=== PATIENT | male | born 1945 | race Caucasian/White ===

== ENCOUNTER 2021-04-26 21:07 | Inpatient (IN) | payer MEDICARE, BC ==
[~2021-04-26] VITALS: Ht 165.1 cm; Wt 68.0 kg
[2021-04-26 21:29] LABS: BASOPHILS # (AUTO) 0.1 /CMM (0.0-0.2); BASOPHILS % (AUTO) 0.7 % (0.0-2.0); EOSINOPHILS % (AUTO) 0.5 % (0.0-6.0); HEMATOCRIT 46 % (39-51); HEMOGLOBIN 15.1 g/dL (13.5-17.5); LYMPHOCYTES # (AUTO) 2.1 /CMM (0.8-4.8); LYMPHOCYTES % (AUTO) 21.2 % (20.0-44.0); MEAN CORPUSCULAR HGB CONC 33 g/dl (31.0-36.0); MEAN CORPUSCULAR VOLUME 92 fL (80-96); MONOCYTES # (AUTO) 0.8 /CMM (0.1-1.30); MONOCYTES % (AUTO) 7.9 % (2.0-12.0); NEUTROPHILS % (AUTO) 69.7 % (43.0-81.0); PLATELET COUNT (AUTO) 200 /CMM (150-450); RED BLOOD CELL COUNT(AUTO) 4.97 MIL/uL (4.5-6.0)
--- NOTE | 2021-04-26 21:29 | NUR ---
BIBFAMILY FROM [facility] TO ER BED 5. AAOX3. NOT IN RESP DISTRESS. AMBULATORY. BROUGHT IN FOR BLURRED VISION, DISORIENTATION AND UNUSUAL BEHAVIOR NOTED AFTER PTIENT FOR A WAKE THIS MORNING. LAST KNOW WELL TIME WAS 0900 PER DAUGHTER. NO MOTOR DEFICIT NOTED. MD WAS AT THE BEDSIDE FOR EVAL. ORDERS RECEIVED, NOTED AND CARRIED OUT. IV LINE ESTABLISHED ON L AC 18G, BLOOD DRAWN AND GIVEN TO PHLEB.PT ON MONITOR.
[2021-04-26 21:54] LABS: CALCIUM, SERUM 9.3 mg/dL (8.5-10.1); CARBON DIOXIDE 28 mmol/L (21-32); CHLORIDE 103 mmol/L (98-107); GLUCOSE 152 mg/dL (74-106); POTASSIUM 4.1 mmol/L (3.5-5.1); SODIUM SERUM 140 mmol/L (136-145); UREA NITROGEN, BLOOD 12 mg/dL (7-18)
[2021-04-26 21:57] LABS: ALANINE AMINOTRANSFERASE 26 U/L (12-78); ALKALINE PHOSPHATASE 88 U/L (46-116); ASPARTATE AMINOTRANSFERASE 24 U/L (15-37); BILIRUBIN,DIRECT 0.2 mg/dL (0.0-0.2); BILIRUBIN,TOTAL 0.8 mg/dL (0.2-1.0); TOTAL PROTEIN, SERUM 7.6 g/dL (6.4-8.2)
[2021-04-26 22:34] LABS: BILIRUBIN,URINE SMALL (NEGATIVE); COLOR,URINE YELLOW (YELLOW); LEUKOCYTE ESTERASE ,URINE Negative (NEGATIVE); NITRITE, URINE Negative (NEGATIVE); PH,URINE 5.5 (5.0-8.0); PROTEIN,URINE 100 mg/dl (NEGATIVE); UGLUCOSE Negative (NEGATIVE)
[2021-04-26 22:46] LABS: BACTERIA,URINE Rare /HPF (None Seen); SQUAMOUS EPITHELIAL CELL,UR Few /HPF (None Seen); WBC,URINE NONE SEEN /HPF (0-3)
--- NOTE | 2021-04-26 23:23 | NUR ---
CALL FROM LAB. RAPID COVID NEGATIVE.
--- NOTE | 2021-04-27 00:06 | NUR ---
called in report to chandrakant amin
--- NOTE | 2021-04-27 01:05 | NUR ---
ADMIT NOTE RECEIVED PATIENT FROM ER, TRANSFERRED TO ROOM 115-1. PATIENT ABLE TO AMBULATE TO BED SAFELY. ALERT AND ORIENTED X2, TELUGU SPEAKING AND KNOWS MINIMAL MOZAMBICAN. ON O2 2L VIA NASAL CANNULA, O2 SAT 98%. NO SHORTNESS OF BREATH. RESPIRATIONS EVEN AND UNLABORED. DENIES ANY PAIN OR DISCOMFORT AT THIS TIME. IV ACCESS ON LEFT AC #18, PATENT AND INTACT. SKIN IS DRY AND INTACT. ORIENTED PATIENT TO ROOM AND CALL LIGHT. BED LOCKED AND IN LOWEST POSITION. CALL LIGHT WITHIN REACH. ALL NEEDS ANTICIPATED.
[2021-04-27 01:10] VITALS: BP 119/85
[2021-04-27] MEDS: ENOXAPARIN SODIUM 40 MG/0.4 ML DISP.SYRIN SQ SCH ×2 (01:27→01:30)
[2021-04-27] MEDS ORDERED: IV D5/0.45 NACL 1,000 ML IV PRN (01:30)
[2021-04-27] MEDS ORDERED: ACETAMINOPHEN 325 MG TABLET PO PRN (01:30)
[2021-04-27] MEDS ORDERED: MORPHINE SULFATE INJ 2 MG/ML DISP.SYRIN IV PRN (01:30)
[2021-04-27] MEDS ORDERED: MAGNESIUM HYDROXIDE 30 ML UDC PO PRN (01:30)
[2021-04-27] MEDS ORDERED: Z GUARD REMEDY 2 OZ OINT TP PRN (01:30)
[2021-04-27] MEDS ORDERED: HYDROCODONE/APAP 5/325MG TABLET PO PRN (01:30)
[2021-04-27] MEDS ORDERED: ONDANSETRON HCL/PF 4 MG/2 ML VIAL IVP PRN (01:30)
[2021-04-27] MEDS ORDERED: ZOLPIDEM TARTRATE 5 MG TABLET PO PRN (01:30)
[2021-04-27] MEDS ORDERED: MAG HYDROX/AL HYDROX/SIMETH 30 ML UDC PO PRN (01:30)
--- NOTE | 2021-04-27 01:35 | NUR ---
OFFERED LOVENOX X3. PATIENT REFUSED. RISKS AND BENEFITS EXPLAINED. STILL STRONGLY REFUSED.
--- NOTE | 2021-04-27 02:55 | NUR ---
PATIENT ON TELE MONITOR, NOTED AFIB/AFLUTTER. AND HEART RATE NOTED 38, PATIENT REMAINS ASYMPTOMATIC. NOTIFIED EULA BOWEN WITH ORDERS TO MONITOR. ALSO NOTIFIED EULA REGARDING PATIENT REFUSING LOVENOX WITH ORDERS FOR SCD. ALL NEEDS ANTICIPATED.
--- NOTE | 2021-04-27 03:10 | NUR ---
PATIENT REMOVING AND REFUSING TELE BOX, SCD, IV FLUIDS, AND ID BAND. PAGED MD, WAITING FOR REPLY BACK.
[2021-04-27 04:00] VITALS: BP 117/68
--- NOTE | 2021-04-27 06:49 | NUR ---
[facility] AWARE OF PATIENT REFUSING TELE BOX WITH ORDERS TO D/C TELE. CHARGE NURSE MARY GUTIERREZ. PATIENT ALSO REFUSED BLOOD DRAW THIS MORNING. PATIENT IN BED RESTING, A/O X2 WITH PERIODS OF CONFUSION. NO SIGNS OF PAIN. BED LOCKED AND IN LOWEST POSITION. CALL LIGHT WITHIN REACH. ENDORSED TO AM SHIFT.
--- NOTE | 2021-04-27 07:35 | NUR ---
RN NOTE PATIENT IS IN BED WITH HOB AT SEMI FOWLERS POSITION. PATIENT IS AOX2. PATIENT IS ON ROOM AIR WITH NO SIGNS OF LABORED BREATHING. LAC #18 IS PATENT AND INTACT. BED IS LOCKED IN THE LOWEST POSITION, 3 GUARD RAILS RAISED, CALL HUSTON WITHIN REACH, AND ALL HOSPITAL SAFETY PRECAUTIONS ARE BEING FOLLOWED. WILL CONTINUE TO MONITOR THROUGHOUT SHIFT.
[2021-04-27] MEDS ORDERED: SIMV-49 PO (07:48)
[2021-04-27] MEDS ORDERED: APIX5TAB PO (07:48)
[2021-04-27] MEDS ORDERED: DILT60TA3 PO (07:48)
[2021-04-27] MEDS ORDERED: LEVE250T4 PO (07:48)
[2021-04-27] MEDS ORDERED: OMEP20CA15 PO (07:48)
[2021-04-27] MEDS ORDERED: METO50TA16 PO (07:48)
--- NOTE | 2021-04-27 08:30 | NUR ---
RN NOTE PATIENT IS REFUSING FLUIDS. EDUCATED PATIENT ON IMPORTANCE OF IV FLUIDS. PATIENT STILL REFUSED.
[2021-04-27] MEDS ORDERED: PANTOPRAZOLE 40 MG VIAL IV SCH (09:00)
[2021-04-27] MEDS ORDERED: ASPIRIN 81 MG TAB.CHEW PO SCH (09:00)
[2021-04-27] MEDS ORDERED: IOHEXOL-350 100 ML VIAL IV ONE (09:56)
[2021-04-27] MEDS ORDERED: IV NS 0.9% 500 ML IV ONE (09:56)
--- NOTE | 2021-04-27 11:15 | NUR ---
RN NOTE PATIENT REFUSING ALL LAB WORK. EDUCATED PATIENT ON IMPORTANCE OF LAB WORK. PATIENT STILL REFUSED. DR. ANI GUTIERREZ.
--- NOTE | 2021-04-27 11:16 | NUR ---
RN NOTE PATIENT COMPLAINING ASKING FOR PHONE AND WALLET. CONTACTED AND SHE STATED SHE HAS THEM BOTH.
--- NOTE | 2021-04-27 14:18 | NUR ---
Turret Press Operator consult: Social service consult requested for stroke. Patient is a 76-year-old, male. SW met with patient at his bedside in the med-surg unit. Patient was alert and oriented x4. Patient was resting. Per chart, patient was brought in to the hospital on 04/26/21 from home by patient's family for transient ischemic attack and altered level of consciousness. SW asked patient if he has a history of stroke and patient denied history. Patient stated that he currently lives at [address] [place] [address]. [address], [facility] [place] [address]; [phone]. Patient provided SW with emergency contact information for patient's friend's spouse, Giovany Hoover, . Patient stated that he currently receives [employer] as a source of income. SW asked patient if he has a history of substance use and patient denied. Patient denied history of mental illness. Patient denied suicidal and homicidal ideation. SW offered the patient stroke resources. Patient accepted the resources and thanked SW. SW administered PHQ-9 assessment. Patient scored 0 on the PHQ-9. SW discussed discharge plans with the patient and patient stated that he will return to his prior living arrangement at home. Patient stated that his family will be providing transportation. PLAN: Patient will return to his prior living arrangement at home. No further SS intervention at this time, however, SW will remain available as needed.
[2021-04-27] MEDS ORDERED: GADOTERATE MEGLUMINE 10 MMOL/20 ML VIAL IV ONE (15:00)
[2021-04-27 16:00] VITALS: BP 129/75
--- NOTE | 2021-04-27 17:22 | NUR ---
RN NOTE PATIENT DC'D WITH COUSIN KRISTOPHER.
== END 2021-04-27 17:15 | disposition home or self-care (01) | DRG 65 ==
LOC: ER 21:09 → TELE1 23:44 → MEDSG1 04-27 07:39
PROVIDERS: ADMIT Nurse Practitioner Acute Care; ATTEND Nurse Practitioner Acute Care
DX: I61.9 Nontraumatic intracerebral hemorrhage, unspecified (principal); D68.59 Other primary thrombophilia; I10 Essential (primary) hypertension; Z20.822 Contact with and (suspected) exposure to COVID-19; Z86.73 Personal history of transient ischemic attack (TIA), and cerebral infarction without residual deficits; I25.10 Atherosclerotic heart disease of native coronary artery without angina pectoris; F17.200 Nicotine dependence, unspecified, uncomplicated; Z79.01 Long term (current) use of anticoagulants; R40.2242 Coma scale, best verbal response, confused conversation, at arrival to emergency department; I48.0 Paroxysmal atrial fibrillation
CPT/HCPCS: 36415; 70450-TC; 70496-TC; 70498-TC; 70553-TC; 71045-TC; 80048-TC; 80076-TC; 81001; 83605-TC; 84484-TC; 85025-TC; 85730-TC; 87040-TC; 87081-TC; 87086-TC; 92526; 92611-TC; 93307-TC; 97116-TC; 97530-TC; A9575; C9113; C9803; G0378; J1650; J3490; J7040; Q9967

== ENCOUNTER 2021-04-28 10:43 | Outpatient (CLI) | payer MEDICARE ==
[~2021-04-28 10:43] MED LIST: DILT60TA3 PO; LEVE250T4 PO; METO50TA16 PO; OMEP20CA15 PO; SIMV-49 PO
== END 2021-04-28 23:59 | disposition home or self-care (01) ==
LOC: CT 10:43
PROVIDERS: ATTEND Nurse Practitioner Acute Care
DX: Z09 Encounter for follow-up examination after completed treatment for conditions other than malignant neoplasm (principal); I63.81 Other cerebral infarction due to occlusion or stenosis of small artery; I67.82 Cerebral ischemia; I61.9 Nontraumatic intracerebral hemorrhage, unspecified
CPT/HCPCS: 70450-TC

== ENCOUNTER 2022-02-03 13:52 | Inpatient (IN) | payer MEDICARE, OTHER ==
[~2022-02-03] VITALS: Ht 162.6 cm; Wt 69.9 kg
--- NOTE | 2022-02-03 13:52 | NUR ---
PT BIB RELATIVE C/O R SIDED ABDOMINAL PAIN STARTED THIS MORNING. PT IS AAOX3 LITHUANIAN SPEAKING ONLY, NOT IN RESPIRATORY DISTRESS, HOOKED TO V/S MONITOR, KEPT RESTED AND COMFORTABLE. WILL CONTINUE TO MONITOR.
--- NOTE | 2022-02-03 14:38 | NUR ---
PHLEB AT BEDSIDE
--- NOTE | 2022-02-03 14:51 | NUR ---
PATIENT NOT ABLE TO PROVIDE URINE SAMPLE AT THIS TIME. MADE AWARE
[2022-02-03 15:00] LABS: BASOPHILS % (AUTO) 0.4 % (0.0-2.0); EOSINOPHILS % (AUTO) 1.7 % (0.0-6.0); HEMATOCRIT 46 % (39-51); HEMOGLOBIN 15.3 g/dL (13.5-17.5); LYMPHOCYTES # (AUTO) 1.6 K/uL (0.8-4.8); LYMPHOCYTES % (AUTO) 14.9 % (20.0-44.0); MEAN CORPUSCULAR HGB CONC 33 g/dl (31.0-36.0); MEAN CORPUSCULAR VOLUME 90 fL (80-96); MONOCYTES # (AUTO) 0.9 K/uL (0.1-1.30); MONOCYTES % (AUTO) 8.4 % (2.0-12.0); NEUTROPHILS # (AUTO) 7.8 K/uL (1.8-8.9); NEUTROPHILS % (AUTO) 74.6 % (43.0-81.0); PLATELET COUNT (AUTO) 305 K/uL (150-450); RED BLOOD CELL COUNT(AUTO) 5.14 MIL/uL (4.5-6.0); WHITE BLOOD COUNT (AUTO) 10.5 K/uL (4.3-11.0)
[2022-02-03 15:37] LABS: CALCIUM, SERUM 9.5 mg/dL (8.5-10.1); CREATININE 0.9 mg/dL (0.6-1.3); POTASSIUM 4.1 mmol/L (3.5-5.1)
[2022-02-03] MEDS ORDERED: APIX5TAB PO (15:38)
--- NOTE | 2022-02-03 15:39 | NUR ---
CALLED SURGERY DR. LOWRY LEFT VM
[2022-02-03 15:43] LABS: ALBUMIN 2.9 g/dL (3.4-5.0); BILIRUBIN,DIRECT 0.1 mg/dL (0.0-0.2); BILIRUBIN,TOTAL 0.5 mg/dL (0.2-1.0); TOTAL PROTEIN, SERUM 7.6 g/dL (6.4-8.2)
--- NOTE | 2022-02-03 15:46 | NUR ---
MOVE SHEET SUBMITTED AND CALLED FOR BED.
--- NOTE | 2022-02-03 15:48 | NUR ---
COVID SWAB DONE AND SENT TO LAB
[2022-02-03] MEDS ORDERED: IV NS 0.9% 1,000 ML BAG IV ONE (16:00)
[2022-02-03] MEDS ORDERED: PIPERACILLIN /TAZOBACTAM 3.375 G in IV D5W 50 ML IV ONE (16:00)
--- NOTE | 2022-02-03 16:28 | NUR ---
patient not able to provide urine sample. mad [facility] aware
[2022-02-03] MEDS ORDERED: HYDROCODONE/APAP 5/325MG TABLET PO PRN (16:30)
[2022-02-03] MEDS ORDERED: Z GUARD REMEDY 4 OZ OINT TP PRN (16:30)
[2022-02-03] MEDS ORDERED: MAGNESIUM HYDROXIDE 30 ML UDC PO PRN (16:30)
[2022-02-03] MEDS ORDERED: ZOLPIDEM TARTRATE 5 MG TABLET PO PRN (16:30)
[2022-02-03] MEDS ORDERED: MAG HYDROX/AL HYDROX/SIMETH 30 ML UDC PO PRN (16:30)
[2022-02-03] MEDS ORDERED: ONDANSETRON HCL/PF 4 MG/2 ML VIAL IVP PRN (16:30)
--- NOTE | 2022-02-03 17:04 | NUR ---
URINE SAMPLE COLLECTED AND SENT TO LAB
[2022-02-03 17:20] LABS: BILIRUBIN,URINE NEGATIVE (NEGATIVE); COLOR,URINE YELLOW (YELLOW); LEUKOCYTE ESTERASE ,URINE NEGATIVE (NEGATIVE); NITRITE, URINE NEGATIVE (NEGATIVE); PH,URINE 7.5 (5.0-8.0); PROTEIN,URINE NEGATIVE (NEGATIVE); UGLUCOSE NEGATIVE (NEGATIVE); UROBILINOGEN,URINE 0.2 EU/dL (0.2)
--- NOTE | 2022-02-03 17:48 | NUR ---
BED 327-2
--- NOTE | 2022-02-03 17:54 | NUR ---
REPORT GIVEN TO BETTIE LEES OF [place] UNIT
--- NOTE | 2022-02-03 18:20 | NUR ---
TRANSFERRED TO BED 327 IN STABLE CONDITION
--- NOTE | 2022-02-03 18:35 | NUR ---
ms rn received a new admission from er,77 year old male, awake,alert,oriented x3,not in any form of distress, came in w/ cc of abdominal pain/ perforated gallbladder, denies pain at this time, all needs attended.
[2022-02-03] MEDS: IV D5/0.45 NACL 1,000 ML IV PRN (18:54)
--- NOTE | 2022-02-03 18:59 | NUR ---
ms rn patient on bed, at bedside, waiting for dr. west for surgical consult,patient put on npo for now.all needs attended.
--- NOTE | 2022-02-03 18:59 | NUR ---
ms rn started on iv of d5 1/2 ns at 100ml /hr infusing well. will monitor patient.
[2022-02-03 19:00] VITALS: BP 122/60
--- NOTE | 2022-02-03 19:45 | NUR ---
MS RN OPENING NOTE PATIENT AWAKE IN BED WITH AT BEDSIDE, PATIENT PRIMARILY FAROESE SPEAKING, UNDERSTANDS A LITTLE BIT OF SALVADOREAN PER . PER PT ALERT/ORIENTED X 3 BUT FORGETFUL/CONFUSED AT TIMES. PATIENT IS NOT VACCINATED FOR COVID OR PNEUMONIA, PATIENT GOT FLU SHOT IN NOVEMBER 2021. PER PATIENT IS AMBULATORY AND DOESN'T USE A WALKER OR WHEELCHAIR AT HOME. PATIENT HAS TOP AND BOTTOM DENTURES. LEFT AC # 20G IV ACCESS INTACT AND RUNNING D5 1/2 NS @ 100 ML/HR. PER , PATIENT IS C/O 8/10 ABDOMINAL PAIN, WILL GIVE PRN MORPHINE IV ORDERED. SAFETY MEASURES IN PLACE: CALL LIGHT WITHIN REACH, SIDE RAILS UP X 2, BED LOCKED IN LOWEST POSITION, BED ALARM ON. WILL CONTINUE TO MONITOR PATIENT
[2022-02-03 20:00] VITALS: BP 112/59
[2022-02-03] MEDS: MORPHINE SULFATE INJ 2 MG/ML DISP.SYRIN IV PRN (20:23)
[2022-02-04 06:45] LABS: BASOPHILS % (AUTO) 0.5 % (0.0-2.0); EOSINOPHILS % (AUTO) 2.6 % (0.0-6.0); HEMATOCRIT 41 % (39-51); HEMOGLOBIN 13.8 g/dL (13.5-17.5); LYMPHOCYTES # (AUTO) 1.7 K/uL (0.8-4.8); LYMPHOCYTES % (AUTO) 20.2 % (20.0-44.0); MEAN CORPUSCULAR HGB CONC 34 g/dl (31.0-36.0); MEAN CORPUSCULAR VOLUME 89 fL (80-96); MONOCYTES # (AUTO) 0.7 K/uL (0.1-1.30); MONOCYTES % (AUTO) 8.3 % (2.0-12.0); NEUTROPHILS # (AUTO) 5.7 K/uL (1.8-8.9); NEUTROPHILS % (AUTO) 68.4 % (43.0-81.0); PLATELET COUNT (AUTO) 289 K/uL (150-450); RED BLOOD CELL COUNT(AUTO) 4.58 MIL/uL (4.5-6.0); WHITE BLOOD COUNT (AUTO) 8.4 K/uL (4.3-11.0)
--- NOTE | 2022-02-04 07:00 | NUR ---
MS RN CLOSING NOTE PATIENT AWAKE IN BED, PATIENT PRIMARILY VENEZUELAN SPEAKING, ABLE TO UNDERSTAND/SPEAK SOME SRI LANKAN. PT ALERT/ORIENTED X 2-3 BUT FORGETFUL/CONFUSED AT TIMES. PT DENIES PAIN AT THIS TIME. PATIENT DOES NOT USE CALL LIGHT DESPITE DEMONSTRATION OF HOW TO USE, BED ALARM KEPT ON THROUGHOUT SHIFT. PATIENT AMBULATORY TO BATHROOM WITH SBA, UNSTEADY GAIT AT TIMES. RIGHT AC # 20G IV ACCESS INTACT AND INFUSING D5 1/2 NS @ 100 ML/HR. MEDICATIONS GIVEN ORDERED, PT NEEDS MET THROUGHOUT SHIFT, PT KEPT NPO THROUGHOUT SHIFT. SAFETY MEASURES IN PLACE: CALL LIGHT WITHIN REACH, SIDE RAILS UP X 2, BED LOCKED IN LOWEST POSITION, BED ALARM ON. WILL ENDORSE TO DAY SHIFT NURSE FOR CONTINUITY OF CARE
[2022-02-04] MEDS: IV D5/0.45 NACL 1,000 ML IV PRN (07:05)
[2022-02-04 07:27] LABS: CALCIUM, SERUM 8.5 mg/dL (8.5-10.1); CREATININE 0.9 mg/dL (0.6-1.3); POTASSIUM 3.7 mmol/L (3.5-5.1)
[2022-02-04 07:28] LABS: ALBUMIN 2.5 g/dL (3.4-5.0); BILIRUBIN,DIRECT 0.1 mg/dL (0.0-0.2); BILIRUBIN,TOTAL 0.7 mg/dL (0.2-1.0); MAGNESIUM 1.8 mg/dL (1.8-2.4); PHOSPHORUS 2.8 mg/dL (2.5-4.9); TOTAL PROTEIN, SERUM 6.6 g/dL (6.4-8.2)
--- NOTE | 2022-02-04 07:28 | NUR ---
RN OPENING NOTES RECEIVED PATIENT IN BED, AWAKE, NO SIGNS OF ACUTE DISTRESS NOTED. STABLE ON ROOM AIR, NO SOB NOTED, BREATHING EVEN AND UNLABORED. DENIES ANY PAIN AT THIS TIME. NOTED WITH IV ACCESS O N RIGHT ANTECUBITAL #20G, INTACT, WITH IVF OF D5 1/2 NS @100ML/HR INFUSING WELL. REMAINS ON NPO. SAFETY MEASURES IN PLACE, BED IN LOWEST AND LOCKED POSITION, BED ALARM ON. SR UP X2, CALL LIGHT PLACED WITHIN EASY REACH. WITH EPISODES OF GETTING OOB UNASSISTED, REMINDED PATIENT TO USE CALL LIGHT NEEDED WHEN HE WANTS TO GO TO THE BATHROOM. WILL CONTINUE TO MONITOR PATIENT.
[2022-02-04 08:00] VITALS: BP 124/80
[2022-02-04] MEDS: PANTOPRAZOLE 40 MG VIAL IV SCH (08:17)
[2022-02-04] MEDS: MORPHINE SULFATE INJ 2 MG/ML DISP.SYRIN IV PRN (12:25)
[2022-02-04] MEDS: PIPERACILLIN /TAZOBACTAM 3.375 G in IV D5W 100 ML IV SCH ×2 (13:32→21:03)
[2022-02-04 16:00] VITALS: BP 139/71
[2022-02-04] MEDS: LEVETIRACETAM (250 MG) 250 MG TABLET PO SCH (16:32)
[2022-02-04] MEDS: METOPROLOL TARTRATE 50 MG TABLET PO SCH (16:32)
[2022-02-04] MEDS: ACETAMINOPHEN 325 MG TABLET PO PRN (16:32)
[2022-02-04] MEDS: DILTIAZEM HCL 30 MG TABLET PO SCH (16:33)
--- NOTE | 2022-02-04 18:54 | NUR ---
RN CLOSING NOTES PATIENT SITTING IN CHAIR. AWAKE, NO SIGNS OF ACUTE DISTRESS NOTED. STABLE ON ROOM AIR, NO SOB NOTED, BREATHING EVEN AND UNLABORED. FAMILY AT BEDSIDE. NO C/O PAIN AT THIS TIME. WITH IV ACCESS ON LEFT FOREARM #20G, INTACT, WITH IVF OF D5 1/2 NS @100ML/HR INFUSING WELL. REMAINS ON NPO. SAFETY MEASURES MAINTAINED. STILL WITH EPISODES OF GETTING OOB UNASSISTED, REMINDED PATIENT TO USE CALL LIGHT NEEDED WHEN HE WANTS TO GO TO THE BATHROOM. WILL ENDORSE TO NEXT SHIFT FOR YENNIFER.
--- NOTE | 2022-02-04 19:30 | NUR ---
MS RN OPENING NOTES: RECEIVED PATIENT AWAKE SITTING ON CHAIR WITH FAMILY AT ROOM, A/O X2-3 AMBULATORY WITH ASSISTANCE, PATIENT ON NPO, WITH LFA#20 WITH ONGOING D5 1/2 NSS@100ML PER HOUR INFUSING WELL, PATIENT ON ROOM AIR NO SOB, SATURATING WELL, PATIENT KEPT CLEAN AND DRY ALL NEEDS MET WILL CONTINUE TO MONITOR.
[2022-02-04 20:00] VITALS: BP 112/69
[2022-02-05] MEDS: PIPERACILLIN /TAZOBACTAM 3.375 G in IV D5W 100 ML IV SCH ×3 (04:20→20:17)
--- NOTE | 2022-02-05 06:26 | NUR ---
MS RN CLOSING NOTES: PATIENT SLEEP IN BED COMFORTABLY, BED IN LOW POSITION, CALL LIGHTS WITHIN REACH, NO COMPLAIN OF PAIN AND DISCOMFORT AT THIS TIME, PATIENT IS A/OX2-3 WITH EPISODE OF CONFUSION, ON ROOM AIR SATURATING WELL, NPO FOR POSSIBLE LAPAROSCOPIC CHOLECYSTECTOMY WITH POSSIBLE OPEN, TOMM IN AM, WITH IV LINE AT [id number] WITH D5 1/2 NSS @100ML PER HOUR INFUSING WELL, PATIENT IS AMBULATORY WITH STAND BY ASSIST, REMIND PATIENT TO USE CALL LIGHT WHEN NEEDED ASSITANCE, PATIENT KEPT CLEAN AND DRY ALL NEEDS MET NEDORSE TO INCOMING SHIFT.
[2022-02-05] MEDS ORDERED: ANESTHESIA TRAY IN PYXIS 1 EA TRAY MC ONE (07:02)
[2022-02-05] MEDS ORDERED: BUPIVACAINE 0.5 % PF 150 MG/30 ML VIAL ONE (07:02)
[2022-02-05 07:17] LABS: BASOPHILS # (AUTO) 0.1 K/uL (0.0-0.2); BASOPHILS % (AUTO) 0.9 % (0.0-2.0); EOSINOPHILS % (AUTO) 2.4 % (0.0-6.0); HEMATOCRIT 45 % (39-51); HEMOGLOBIN 15.3 g/dL (13.5-17.5); LYMPHOCYTES # (AUTO) 2.1 K/uL (0.8-4.8); LYMPHOCYTES % (AUTO) 23.5 % (20.0-44.0); MEAN CORPUSCULAR HGB CONC 34 g/dl (31.0-36.0); MEAN CORPUSCULAR VOLUME 89 fL (80-96); MONOCYTES # (AUTO) 0.7 K/uL (0.1-1.30); MONOCYTES % (AUTO) 7.8 % (2.0-12.0); NEUTROPHILS # (AUTO) 5.9 K/uL (1.8-8.9); NEUTROPHILS % (AUTO) 65.4 % (43.0-81.0); PLATELET COUNT (AUTO) 311 K/uL (150-450); RED BLOOD CELL COUNT(AUTO) 5.11 MIL/uL (4.5-6.0)
[2022-02-05] MEDS ORDERED: HYDROMORPHONE INJ 2 MG/ML DISP.SYRIN ONE (07:17)
[2022-02-05] MEDS ORDERED: FENTANYL PF 250MCG/5ML AMPUL ONE (07:17)
[2022-02-05] MEDS ORDERED: MIDAZOLAM HCL 2 MG/2ML VIAL ONE (07:17)
[2022-02-05] MEDS ORDERED: ROCURONIUM BROMIDE 50 MG/5 ML ONE (07:18)
[2022-02-05] MEDS ORDERED: FAMOTIDINE/PF INJ 20 MG/2 ML VIAL IV ONE (07:18)
--- NOTE | 2022-02-05 07:30 | NUR ---
MS RN OPENING NOTES: RECEIVED PATIENT AWAKE ON BED, A/O X2-3, SPEAKS ICELANDIC. AMBULATORY WITH ASSISTANCE, PATIENT ON NPO, WITH LFA#20 WITH ONGOING D5 1/2 NSS@100ML PER HOUR INFUSING WELL, PATIENT ON ROOM AIR NO SOB, SATURATING WELL. PATIENT PICKED OP BY OR PERSONNEL AT 0715 FOR SURGERY. ABLE TO MAKE NEEDS KNOWN. ALL NEEDS ATTENDED. LEFT THE UNIT FOR SURGERY.
[2022-02-05 07:31] LABS: ALANINE AMINOTRANSFERASE 89 U/L (12-78); ALBUMIN 2.7 g/dL (3.4-5.0); ALKALINE PHOSPHATASE 101 U/L (46-116); ASPARTATE AMINOTRANSFERASE 48 U/L (15-37); BILIRUBIN,DIRECT 0.2 mg/dL (0.0-0.2); BILIRUBIN,TOTAL 1.1 mg/dL (0.2-1.0); CALCIUM, SERUM 9.2 mg/dL (8.5-10.1); CARBON DIOXIDE 26 mmol/L (21-32); CHLORIDE 102 mmol/L (98-107); CREATININE 0.9 mg/dL (0.6-1.3); GLUCOSE 105 mg/dL (74-106); MAGNESIUM 2.5 mg/dL (1.8-2.4); PHOSPHORUS 3.5 mg/dL (2.5-4.9); POTASSIUM 3.7 mmol/L (3.5-5.1); SODIUM SERUM 138 mmol/L (136-145); TOTAL PROTEIN, SERUM 7.4 g/dL (6.4-8.2); UREA NITROGEN, BLOOD 8 mg/dL (7-18)
[2022-02-05] MEDS: DILTIAZEM HCL 30 MG TABLET PO SCH ×2 (09:00→16:45)
[2022-02-05] MEDS: LEVETIRACETAM (250 MG) 250 MG TABLET PO SCH ×2 (09:00→16:45)
[2022-02-05] MEDS: METOPROLOL TARTRATE 50 MG TABLET PO SCH ×2 (09:00→16:46)
--- NOTE | 2022-02-05 10:30 | NUR ---
RN NOTES PATIENT BACK FROM SURGERY. FAMILY AT HIS SIDE. NO PAIN NOTED. NO RESPIRATORY DISTRESS NOTED. VITAL SIGNS IN NORMAL RANGES. ABLE TO MAKE NEEDS KNOWN. GP DRAIN TUBE INTACT. NO BLEEDING ON THE SURGERY SITES NOTED. ALL NEEDS ATTENDED. ABLE TO SWALLOW LIQUIDS. WILL CONTINUE TO MONITOR.
[2022-02-05] MEDS: PANTOPRAZOLE 40 MG VIAL IV SCH (13:24)
--- NOTE | 2022-02-05 18:46 | NUR ---
MS RN CLOSING NOTES: PATIENT AWAKE ON BED, A/O X2-3, SPEAKS BENGALI. AMBULATORY WITH ASSISTANCE, PATIENT S/P OF THE LAPAROSCOPY OF THE CHOLECYSTOSTOMY. NO BLEEDING ON THE SURGICAL SITED. GP DRAINING WELL. NO PAIN NOTED., WITH LFA#20 WITH ONGOING D5 1/2 NSS@100ML PER HOUR INFUSING WELL, PATIENT ON ROOM AIR NO SOB, SATURATING WELL. . ABLE TO MAKE NEEDS KNOWN. ALL NEEDS ATTENDED. ALL DUE MEDS GIVEN ORDERED. BED LOCKED IN THE LOWEST POSITION. CALL LIGHT AND TABLE IN REACH. WILL ENDORSE FOR YENNIFER.
--- NOTE | 2022-02-05 19:47 | NUR ---
MS RN OPENING NOTES: PATIENT AWAKE ON BED, A/O X2-3, SPEAKS PERSIAN. AMBULATORY WITH ASSISTANCE, PATIENT S/P OF THE LAPAROSCOPY OF THE CHOLECYSTOSTOMY. NO BLEEDING ON THE SURGICAL SITED. GP DRAINING WELL. NO PAIN NOTED., WITH LFA#20 WITH ONGOING D5 1/2 NSS@100ML PER HOUR INFUSING WELL, PATIENT ON ROOM AIR NO SOB, SATURATING WELL. . ABLE TO MAKE NEEDS KNOWN. ALL NEEDS ATTENDED. BED LOCKED IN THE LOWEST POSITION. CALL LIGHT AND TABLE IN REACH. WILL CONTINUE TO MONITOR.
[2022-02-05 20:14] VITALS: BP 113/65
[2022-02-05 20:15] VITALS: BP 111/59
[2022-02-06] MEDS: PIPERACILLIN /TAZOBACTAM 3.375 G in IV D5W 100 ML IV SCH ×3 (04:34→20:58)
--- NOTE | 2022-02-06 05:39 | NUR ---
MS RN NOTES PT ERICKaylaJESI TO ROOM 326-1 ATTEMPTED TO RECONNECT PT TO IV ATB PT AGGRESSIVE STATED " DONT TOUCH ME ! YOU YOU UNDERSTAND WHAT THAT MEANS! I DON'T NEED ANTIBIOTICS LEAVE ME ALONE " WILL TRY AGAIN LATER. Addendum: 02/06/22 at 0544 by MARIAN SALAZAR RN TRIED TO EMPTY LOU DRAIN WELL PT PUT UP HIS LEGS IF TO KICK ME. CHARGE NURSE AWARE.
--- NOTE | 2022-02-06 06:32 | NUR ---
MS RN CLOSING NOTES: PATIENT AWAKE ON BED, A/O X2-3, SPEAKS TAJIK. AMBULATORY WITH ASSISTANCE, PATIENT S/P OF THE LAPAROSCOPY OF THE CHOLECYSTOSTOMY. NO BLEEDING ON THE SURGICAL SITED. GP DRAINING WELL 30 CC OUTPUT WAS UNABLE TO DRAIN LOU DRAIN AT THIS TIME PT IS REFUSING PT STATED " DONT TOUCH I DONT WANT YOU TO TOUCH ME" PT IS ALSO REFUSING RECONNECTION TO IV ATB AT THIS TIME. NO PAIN NOTED OR REPORTED AT THIS TIME. NOTED WITH LFA#20, PATIENT ON ROOM AIR NO SOB, SATURATING WELL. ABLE TO MAKE NEEDS KNOWN. ALL NEEDS ATTENDED. BED LOCKED IN THE LOWEST POSITION. CALL LIGHT AND TABLE IN REACH. BED ALARM ON WILL ENDORSE CARE TO DAY SHIFT NURSE.
--- NOTE | 2022-02-06 07:26 | NUR ---
MS RN OPENING NOTES: PATIENT AWAKE ON BED, A/O X2-3, SPEAKS LATVIAN. AMBULATORY WITH ASSISTANCE, PATIENT S/P OF THE LAPAROSCOPY OF THE CHOLECYSTOSTOMY. NO BLEEDING ON THE SURGICAL SITED. GP DRAINING WELL. NO PAIN NOTED., WITH LFA#20 WITH ONGOING D5 1/2 NSS@100ML PER HOUR INFUSING WELL, PATIENT ON ROOM AIR NO SOB, SATURATING WELL. . ABLE TO MAKE NEEDS KNOWN. ALL NEEDS ATTENDED. BED LOCKED IN THE LOWEST POSITION AND LOCKED. CALL LIGHT AND TABLE IN REACH. WILL CONTINUE TO MONITOR.
[2022-02-06] MEDS: PANTOPRAZOLE 40 MG TABLET.DR PO SCH (08:40)
[2022-02-06] MEDS: LEVETIRACETAM (250 MG) 250 MG TABLET PO SCH ×2 (08:40→16:44)
[2022-02-06] MEDS: METOPROLOL TARTRATE 50 MG TABLET PO SCH ×2 (09:00→16:45)
[2022-02-06] MEDS: DILTIAZEM HCL 30 MG TABLET PO SCH (09:00)
--- NOTE | 2022-02-06 09:00 | NUR ---
RN NOTES HELD METOPROLOL AND DILTIAZEM FOR BP=99/55, DOCTOR OF AUDIOLOGY BEVERLY HOLLY AWARE.
--- NOTE | 2022-02-06 11:00 | NUR ---
RN NOTES PER ALEN AMAYA PATIENT IS OK TO GET ELIQUIS. PEBBLES HOLLY RESUMED THE ORDER FOR ELIQUIS 5 MG BID .
[2022-02-06 11:37] LABS: BASOPHILS # (AUTO) 0.1 K/uL (0.0-0.2); BASOPHILS % (AUTO) 0.4 % (0.0-2.0); HEMATOCRIT 38 % (39-51); HEMOGLOBIN 12.6 g/dL (13.5-17.5); LYMPHOCYTES # (AUTO) 1.1 K/uL (0.8-4.8); LYMPHOCYTES % (AUTO) 6.6 % (20.0-44.0); MEAN CORPUSCULAR HGB CONC 33 g/dl (31.0-36.0); MEAN CORPUSCULAR VOLUME 89 fL (80-96); MONOCYTES # (AUTO) 0.9 K/uL (0.1-1.30); MONOCYTES % (AUTO) 5.3 % (2.0-12.0); NEUTROPHILS # (AUTO) 15.2 K/uL (1.8-8.9); NEUTROPHILS % (AUTO) 87.7 % (43.0-81.0); PLATELET COUNT (AUTO) 327 K/uL (150-450); RED BLOOD CELL COUNT(AUTO) 4.29 MIL/uL (4.5-6.0); WHITE BLOOD COUNT (AUTO) 17.3 K/uL (4.3-11.0)
[2022-02-06 12:43] LABS: ALBUMIN 2.3 g/dL (3.4-5.0); BILIRUBIN,DIRECT 0.1 mg/dL (0.0-0.2); BILIRUBIN,TOTAL 0.5 mg/dL (0.2-1.0); CALCIUM, SERUM 8.6 mg/dL (8.5-10.1); CREATININE 0.9 mg/dL (0.6-1.3); MAGNESIUM 2.5 mg/dL (1.8-2.4); PHOSPHORUS 2.6 mg/dL (2.5-4.9); POTASSIUM 3.8 mmol/L (3.5-5.1); TOTAL PROTEIN, SERUM 6.5 g/dL (6.4-8.2)
[2022-02-06] MEDS: APIXABAN 5 MG TABLET PO SCH (16:46)
--- NOTE | 2022-02-06 18:56 | NUR ---
MS RN CLOSING NOTES: PATIENT AWAKE ON BED, A/O X2-3, SPEAKS SLOVENIAN. AMBULATORY WITH ASSISTANCE, PATIENT S/P OF THE LAPAROSCOPY OF THE CHOLECYSTOSTOMY. NO BLEEDING ON THE SURGICAL SITED. GP DRAINING WELL. NO PAIN NOTED., WITH LFA#20 WITH ONGOING D5 1/2 NSS@100ML PER HOUR INFUSING WELL, PATIENT ON ROOM AIR NO SOB, SATURATING WELL.ALL DUE MEDS GIVEN ORDERED. . ABLE TO MAKE NEEDS KNOWN. ALL NEEDS ATTENDED. BED LOCKED IN THE LOWEST POSITION AND LOCKED. CALL LIGHT AND TABLE IN REACH. WILL ENDORSE FOR YENNIFER.
[2022-02-06 20:00] VITALS: BP 132/72
--- NOTE | 2022-02-06 20:47 | NUR ---
MS RN OPENING NOTES: RECEIVED PATIENT SLEEP IN BED COMFORTABLY, BED IN LOW POSITION, CALL LIGHTS WITHIN REACH, NO COMPLAIN OF PAIN AND DISCOMFORT AT THIS TIME, PATIENT IS A/OX3 AMBULATORY WITH ASSISTANCE, FAMILY ON BEDSIDE WITH IV LINE AT LFA#20 WITH ONGOING D5 1/2 NSS@100 ML PER HOUR INFUSING WELL, PATIENT IS S/P CHOLECYSTECTOMY WITH RIGHT LOU DRAIN WITH 3 SURGICAL SITE COVER AND CLEANED, PATIENT KEPT CLEAN AND DRY ALL NEEDS MET WILL CONTINUE TO MONITOR
[2022-02-07] MEDS: PIPERACILLIN /TAZOBACTAM 3.375 G in IV D5W 100 ML IV SCH ×3 (05:15→20:20)
--- NOTE | 2022-02-07 06:29 | NUR ---
MS RN CLOSING NOTE: PATIENT SLEEP IN ED COMFORTABLY BED IN LOW POSITION, CALL LIGHTS WITHIN REACH, NO COMPLAIN OF PAIN AND DISCOMFORT AT THIS TIME, WITH ONGOING IV AT RIGHT HAND #22 WITH D5 1/2 NS@100 ML/HOUR, PATIENT ON ROOM AIR SATURATING WELL, NO SOB WAS OBSERVED, PATIENT WITH LOU DRAIN ON RIGHT LOWER ABDOMEN WITH 20CC OUTPUT, BANDAGE ON PUNCTURE SITE CLEAN AND DRY, PATIENT AMBULATE TO BATHROOM WITH SUPERVISION, KEPT CLEAN AND DRY ALL NEEDS MET ENDORSE TO INCOMING SHIFT.
[2022-02-07 06:57] LABS: ALANINE AMINOTRANSFERASE 111 U/L (12-78); ALBUMIN 2.4 g/dL (3.4-5.0); ALKALINE PHOSPHATASE 100 U/L (46-116); ASPARTATE AMINOTRANSFERASE 79 U/L (15-37); BILIRUBIN,DIRECT 0.1 mg/dL (0.0-0.2); BILIRUBIN,TOTAL 0.5 mg/dL (0.2-1.0); CALCIUM, SERUM 8.8 mg/dL (8.5-10.1); CARBON DIOXIDE 26 mmol/L (21-32); CHLORIDE 104 mmol/L (98-107); CREATININE 0.8 mg/dL (0.6-1.3); GLUCOSE 106 mg/dL (74-106); MAGNESIUM 2.1 mg/dL (1.8-2.4); PHOSPHORUS 2.9 mg/dL (2.5-4.9); POTASSIUM 3.6 mmol/L (3.5-5.1); SODIUM SERUM 139 mmol/L (136-145); TOTAL PROTEIN, SERUM 6.6 g/dL (6.4-8.2); UREA NITROGEN, BLOOD 10 mg/dL (7-18)
[2022-02-07 07:19] LABS: BASOPHILS # (AUTO) 0.1 K/uL (0.0-0.2); BASOPHILS % (AUTO) 0.4 % (0.0-2.0); EOSINOPHILS % (AUTO) 1.1 % (0.0-6.0); HEMATOCRIT 39 % (39-51); HEMOGLOBIN 12.9 g/dL (13.5-17.5); LYMPHOCYTES # (AUTO) 1.7 K/uL (0.8-4.8); LYMPHOCYTES % (AUTO) 14.7 % (20.0-44.0); MEAN CORPUSCULAR HGB CONC 33 g/dl (31.0-36.0); MEAN CORPUSCULAR VOLUME 89 fL (80-96); MONOCYTES # (AUTO) 0.8 K/uL (0.1-1.30); MONOCYTES % (AUTO) 6.6 % (2.0-12.0); NEUTROPHILS % (AUTO) 77.2 % (43.0-81.0); PLATELET COUNT (AUTO) 325 K/uL (150-450); RED BLOOD CELL COUNT(AUTO) 4.35 MIL/uL (4.5-6.0); WHITE BLOOD COUNT (AUTO) 11.7 K/uL (4.3-11.0)
--- NOTE | 2022-02-07 07:30 | NUR ---
RN MS NOTES PT IN BED, AWAKE, ALERT AND ORIENTED, DENIES PAIN, NOT IN DISTRESS, CALL LIGHT WITHIN REACH, NEEDS ATTENDED, ASSISTED TO BATHROOM NEEDED, ABLE TO WALK WITH SLOW AND STEADY GAIT WITH STANDBY ASSISTANCE, KEPT COMFORTABLE IN BED.
[2022-02-07] MEDS: PANTOPRAZOLE 40 MG TABLET.DR PO SCH (08:46)
[2022-02-07] MEDS: LEVETIRACETAM (250 MG) 250 MG TABLET PO SCH ×2 (08:46→17:03)
[2022-02-07] MEDS: APIXABAN 5 MG TABLET PO SCH ×2 (08:47→17:03)
[2022-02-07] MEDS: METOPROLOL TARTRATE 50 MG TABLET PO SCH ×2 (09:13→17:00)
--- NOTE | 2022-02-07 18:14 | NUR ---
RN MS NOTES PT IN BED, AWAKE, ALERT AND ORIENTED, NO COMPLAINT OF PAIN AT THIS TIME, RESPIRATIONS NORMAL, BEN AT BEDSIDE, ASSISTED PT TO BATHROOM NEEDED, PT SEEN AND EXAMINED BY DR. LOWRY, PLAN FOR REMOVAL OF LOU DRAIN TOMORROW, ALL NEEDS ATTENDED.
--- NOTE | 2022-02-07 18:57 | NUR ---
RN MS NOTES 10 ML OUTPUT FROM LOU DRAIN AT RIGHT SIDE OF THE ABDOMEN.
--- NOTE | 2022-02-07 19:38 | NUR ---
MS RN OPENING NOTES RECEIVED PATIENT AWAKE IN BED. A/O X3.PATIENTS AT BEDSIDE. PT STABLE ON ROOM AIR. NO SOB OR S/S OF RESPIRATORY DISTRESS NOTED. IV ACCESS LFA 20 GAUGE, INTACT AND PATENT, RUNNING D5 1/2 NS @100 ML/HR. PATIENT IS S/P CHOLECYSTECTOMY WITH RIGHT LOU DRAIN WITH 3 SURGICAL SITES COVERED AND CLEAN. SAFETY PRECAUTIONS IN PLACE. BED IN LOWEST LOCKED POSITION, HOB ELEVATED, SIDE RAILS UP X2, AND CALL LIGHT AND TABLE WITHIN REACH. ALL NEEDS MET AT THIS TIME.
[2022-02-07 20:00] VITALS: BP 133/66
[2022-02-07] MEDS: ACETAMINOPHEN 325 MG TABLET PO PRN (20:36)
--- NOTE | 2022-02-07 20:36 | NUR ---
RN NOTE PT COMPLAINED OF MILD PAIN AT SURGICAL SITE R ABDOMEN, 12/15. ADMINISTERED TYLENOL 650 MG ORDERED FOR MILD PAIN. ALL NEEDS MET AT THIS TIME.
[2022-02-08] MEDS: PIPERACILLIN /TAZOBACTAM 3.375 G in IV D5W 100 ML IV SCH ×3 (04:14→20:25)
[2022-02-08] MEDS ORDERED: IOHEXOL-350 100 ML VIAL IV ONE ×2 (06:05→14:02)
[2022-02-08] MEDS ORDERED: CT SWABBABLE VALVE TRANS SET 1 EA INFUS.SET MC ONE (06:05)
[2022-02-08] MEDS ORDERED: IV NS 0.9% 250 ML IV ONE ×2 (06:06→14:03)
[2022-02-08 06:09] LABS: BASOPHILS # (AUTO) 0.1 K/uL (0.0-0.2); BASOPHILS % (AUTO) 0.5 % (0.0-2.0); EOSINOPHILS % (AUTO) 1.8 % (0.0-6.0); HEMATOCRIT 48 % (39-51); HEMOGLOBIN 15.9 g/dL (13.5-17.5); LYMPHOCYTES # (AUTO) 2.3 K/uL (0.8-4.8); LYMPHOCYTES % (AUTO) 21.7 % (20.0-44.0); MEAN CORPUSCULAR HGB CONC 33 g/dl (31.0-36.0); MEAN CORPUSCULAR VOLUME 90 fL (80-96); MONOCYTES # (AUTO) 0.9 K/uL (0.1-1.30); MONOCYTES % (AUTO) 8.5 % (2.0-12.0); NEUTROPHILS # (AUTO) 7.3 K/uL (1.8-8.9); NEUTROPHILS % (AUTO) 67.5 % (43.0-81.0); PLATELET COUNT (AUTO) 393 K/uL (150-450); RED BLOOD CELL COUNT(AUTO) 5.32 MIL/uL (4.5-6.0); WHITE BLOOD COUNT (AUTO) 10.8 K/uL (4.3-11.0)
[2022-02-08 06:20] LABS: CALCIUM, SERUM 9.5 mg/dL (8.5-10.1); CARBON DIOXIDE 23 mmol/L (21-32); CHLORIDE 103 mmol/L (98-107); GLUCOSE 157 mg/dL (74-106); MAGNESIUM 2.3 mg/dL (1.8-2.4); PHOSPHORUS 3.7 mg/dL (2.5-4.9); POTASSIUM 4.1 mmol/L (3.5-5.1); SODIUM SERUM 139 mmol/L (136-145); UREA NITROGEN, BLOOD 10 mg/dL (7-18)
--- NOTE | 2022-02-08 06:45 | NUR ---
RN NOTE AMBULATED PT TO TOILET AT 0445. PT COMPLAINED OF CONSTIPATION BUT DID NOT WANT TO GO BACK TO BED, REFUSED MEDICATION FOR CONSTIPATION. MAINTAINED STATUS AT BEDSIDE WHILE PATIENT WAS USING RESTROOM AND ASKED IF DONE EVERY 5 MINUTES. AT 0530, PT LEANED HEAVILY ON HIS LEFT SIDE AND UNABLE TO STAND FROM TOILET. SAFETY TRANSPORTED TO BED WITH MAXIMUM ASSIST. PT NOTED TO BE DIAPHORETIC. BS 152. INITIATED RAPID RESPONSE AT 0540. ICU CHARGE CALLED CODE STROKE AT 0546. ATTEMPTED TO GET VITALS BUT PATIENT WAS TAKEN TO CT. EKG, LABS, AND CHEST X-RAY DONE AT BEDSIDE. SEEN BY TELEHEALTH NEURO MD. MD ROSE CALLED BACK AT 0640 AND INFORMED OF PATIENT STATUS. SEE NOTES FOR NIHSS SCORE. BEN NOTIFIED AND CONSENT GIVEN FOR MRI BRAIN WITHOUT CONTRAST. PT READING A FIB ON TELEMETRY. NEURO CHECKS EVERY 30 MINUTES X2 AND THEN EVERY 2 HOURS. Addendum: 02/08/22 at 0848 by MAYE CAMACHO RN PT REFUSED SWALLOW EVALUATION.
--- NOTE | 2022-02-08 07:00 | NUR ---
PERSONAL LINES INSURANCE AGENT CLOSING NOTES PATIENT AWAKE IN BED. A/O X1. PT STABLE ON ROOM AIR. NO SOB OR S/S OF RESPIRATORY DISTRESS NOTED. IV ACCESS LFA 20 GAUGE, INTACT AND PATENT, RUNNING D5 1/2 NS @100 ML/HR. PATIENT IS S/P CHOLECYSTECTOMY WITH RIGHT LOU DRAIN WITH 3 SURGICAL SITES COVERED AND CLEAN. SAFETY PRECAUTIONS IN PLACE. BED IN LOWEST LOCKED POSITION, HOB ELEVATED, SIDE RAILS UP X2, AND CALL LIGHT AND TABLE WITHIN REACH. ALL NEEDS MET AT THIS TIME. NEURO CHECKS COMPLETED. PATIENT REFUSED SWALLOW EVALUATION. WILL ENDORSE TO ONCOMING NURSE FOR YENNIFER.
--- NOTE | 2022-02-08 07:07 | NUR ---
TEXT DR. DE LA ROSA FOR MRI APPROVAL.
--- NOTE | 2022-02-08 07:30 | NUR ---
DIESEL DINKEY OPERATOR NOTES PT IN BED, AWAKE, ALERT, VERBALLY RESPONSIVE, STATES THAT HE WANTS TO GO TO THE BATHROOM, NO COMPLAINT OF PAIN OR ANY DISCOMFORT, ON O2 AT 2LPM VIA N/C, NO SOB NOTED, WILL CONTINUE TO MONITOR.
--- NOTE | 2022-02-08 07:47 | NUR ---
MRI ON HOLD PER DR. DE LA ROSA, HE WILL LET US KNOW.
[2022-02-08 08:00] VITALS: BP 126/70
[2022-02-08] MEDS: PANTOPRAZOLE 40 MG TABLET.DR PO SCH (09:07)
[2022-02-08] MEDS: LEVETIRACETAM (250 MG) 250 MG TABLET PO SCH ×2 (09:07→16:58)
[2022-02-08] MEDS: METOPROLOL TARTRATE 50 MG TABLET PO SCH ×2 (09:08→16:58)
[2022-02-08] MEDS: APIXABAN 5 MG TABLET PO SCH ×2 (09:09→16:59)
--- NOTE | 2022-02-08 09:51 | NUR ---
COATING ENGINEER NOTES PT SEEN AND EXAMINED BY DR. YAO, NEURO CHECK PERFORMED, PT WITH LEFT SIDED WEAKNESS, HR GOES UP TO 140'S-130'S AFIB WITH PVC'S, MD AWARE, WILL CONTINUE TO MONITOR, PT REMAINS AWAKE AND ALERT, ABLE TO ANSWER QUESTIONS, DENIES PAIN, DIZZINESS AND SOB.
[2022-02-08 11:32] LABS: THYROID STIMULATING HORMONE 0.593 uIU/mL (0.358-3.74)
--- NOTE | 2022-02-08 15:14 | NUR ---
RN MS NOTES PT SEEN BY DR. LOWRY, RIGHT ABDOMEN LOU DRAIN REMOVED BY DR. LOWRY, NO BLEEDING NOTED, DRY DRESSING APPLIED, PT TOLERATED PROCEDURE WELL.
[2022-02-08 16:00] VITALS: BP 112/88
--- NOTE | 2022-02-08 18:27 | NUR ---
RN MS NOTES PT IN BED, RESTING, NO COMPLAINT OF PAIN, ON ROOM AIR, NO SOB NOTED, NEUROCHECKS DONE ORDERED, PT SEEN BY DR. ALSTON, PT COMPLETED CTA BRAIN AND CAROTID, ASSISTED IN REPOSITIONING, IV FLUIDS INFUSING WELL, BED ALARM ON AT ALL TIMES, SAFETY PRECAUTIONS OBSERVED.
--- NOTE | 2022-02-08 19:30 | NUR ---
RN OPENING NOTE PATIENT IN BED AWAKE. PATIENT IS ABLE TO MAKE NEEDS KNOWN. CURRENTLY ON RA TOLERATING WELL, NOT IN ANY APPARENT DISTRESS. PATIENT IS ON TELE MONITOR FOR OBSERVATION D/T CODE STROKE THIS AM. CONTROLLED AFIB AT THIS TIME 90 BPM. PATIENT S/S REMOVAL OF LOU DRAIN ON R ABD- DRESSING C/D/I. PATIENT HAS A R AC 18 G HAS ON GOING D51/2 NS AT 100 ML/HR. PATENT AND INTACT AND R HAND 20 G SALINE LOCKED AT THIS TIME. PATIENT REPORTS PAIN ON HIS L NECK AND REQUESTING TYLENOL. WILL MANAGE PAIN APPROPRIATELY. PATIENT OBSERVED TO HAVE L SIDED WEAKNESS. SAFETY MEASURES IN PLACE: BED LOCKED AND IN LOWEST POSITION, CALL LIGHT WITHIN REACH, SIDE RAILS UP. BED ALARM ON. WILL MONITOR PATIENT CLOSELY.
[2022-02-08 20:00] VITALS: BP 141/74
[2022-02-08] MEDS: IV D5/0.45 NACL 1,000 ML IV PRN (20:25)
[2022-02-08] MEDS: ACETAMINOPHEN 325 MG TABLET PO PRN (20:26)
--- NOTE | 2022-02-08 20:30 | NUR ---
TYLENOL GIVEN FOR MILD PAIN ON THE NECK.
[2022-02-09] VITALS: BP 142/73
[2022-02-09 04:00] VITALS: BP 124/71
[2022-02-09] MEDS: PIPERACILLIN /TAZOBACTAM 3.375 G in IV D5W 100 ML IV SCH ×3 (04:18→20:36)
[2022-02-09 06:34] LABS: BASOPHILS # (AUTO) 0.1 K/uL (0.0-0.2); BASOPHILS % (AUTO) 0.7 % (0.0-2.0); HEMATOCRIT 41 % (39-51); LYMPHOCYTES # (AUTO) 1.4 K/uL (0.8-4.8); LYMPHOCYTES % (AUTO) 16.9 % (20.0-44.0); MEAN CORPUSCULAR HGB CONC 34 g/dl (31.0-36.0); MEAN CORPUSCULAR VOLUME 88 fL (80-96); MONOCYTES # (AUTO) 0.8 K/uL (0.1-1.30); MONOCYTES % (AUTO) 9.8 % (2.0-12.0); NEUTROPHILS % (AUTO) 70.6 % (43.0-81.0); PLATELET COUNT (AUTO) 349 K/uL (150-450); WHITE BLOOD COUNT (AUTO) 8.5 K/uL (4.3-11.0)
[2022-02-09 06:48] LABS: CALCIUM, SERUM 8.7 mg/dL (8.5-10.1); CREATININE 0.9 mg/dL (0.6-1.3); MAGNESIUM 2.1 mg/dL (1.8-2.4); PHOSPHORUS 3.2 mg/dL (2.5-4.9); POTASSIUM 3.8 mmol/L (3.5-5.1)
--- NOTE | 2022-02-09 06:53 | NUR ---
RN CLOSING NOTE PATIENT IN BED AWAKE. PATIENT IS ABLE TO MAKE NEEDS KNOWN. CURRENTLY ON RA TOLERATING WELL, NOT IN ANY APPARENT DISTRESS. PATIENT IS ON TELE MONITOR FOR OBSERVATION D/T CODE STROKE CONTROLLED AFIB AT THIS TIME 90 BPM WITH BIGEMINY AND TRIGEMINY. PATIENT S/S REMOVAL OF LOU DRAIN ON R ABD- DRESSING C/D/I. PATIENT HAS A R AC 18 G HAS ON GOING D51/2 NS AT 100 ML/HR. PATENT AND INTACT AND R HAND 20 G SALINE LOCKED AT THIS TIME. PATIENT OBSERVED TO HAVE L SIDED WEAKNESS. SAFETY MEASURES IN PLACE: BED LOCKED AND IN LOWEST POSITION, CALL LIGHT WITHIN REACH, SIDE RAILS UP. BED ALARM ON. ALL NEEDS MET AND ATTENDED. ALL ORDERS CARRIED OUT. WILL ENDORSE TO DAY SHIFT NURSE FOR YENNIFER.
[2022-02-09 08:00] VITALS: BP 126/66
--- NOTE | 2022-02-09 08:14 | NUR ---
RN OPENING NOTE PATIENT RECEIVED IN BED, AO x 3, ABLE TO RESPONDS ALL STIMULI. IN NO ACUTE DISTRESS NOTED. RESPIRATORY EVEN AND UNLABORED ON ROOM AIR. SKIN IS WARM TO TOUCH, KEEP CLEAN/DRY, INTACT IV SITE. KEPT ELEVATED HOB FOR ENSURE AIRWAY AND ASPIRATION PRECAUTION, ALSO LOWEST POSITION OF THE BED, S/R UP X 3, ALL SAFETY PRECAUTION APPLIED. CALL LIGHT WITHIN REACH, WILL CONTINUE TO MONITOR.
[2022-02-09] MEDS: METOPROLOL TARTRATE 50 MG TABLET PO SCH ×2 (08:26→16:49)
[2022-02-09] MEDS: LEVETIRACETAM (250 MG) 250 MG TABLET PO SCH ×2 (08:26→16:48)
[2022-02-09] MEDS: APIXABAN 5 MG TABLET PO SCH ×2 (08:27→16:48)
[2022-02-09] MEDS: PANTOPRAZOLE 40 MG TABLET.DR PO SCH (08:27)
[2022-02-09] MEDS: ACETAMINOPHEN 325 MG TABLET PO PRN (11:58)
--- NOTE | 2022-02-09 12:04 | NUR ---
PATIENT NOTED FEVER 100.3, GIVEN TYLENOL. WILL CONTINUE TO MONITOR.
--- NOTE | 2022-02-09 12:16 | NUR ---
RECHECKED TEMPERATURE: 98.3. WILL CONTINUE TO MONITOR.
[2022-02-09 16:00] VITALS: BP 129/74
--- NOTE | 2022-02-09 18:07 | NUR ---
RN CLOSE NOTE PATIENT IN BED, IN NO ACUTE DISTRESS OBSERVED. RESPIRATION EVEN AND UNLABORED ON ROOM. SKIN IS WARM TO TOUCH KEEP CLEAN//DRY, INTACT IV SITE. CONTINUOS OBSERVE NEURO CHECK CLOSELY. KEPT ELEVATED HOB FOR ENSURE AIRWAY AND ASPIRATION PRECAUTION. ALSO LOWEST POSITION OF THE BED FOR SAFETY. CALL LIGHT WITHIN REACH, WILL ENDORSE TO PRE SALES NETWORK ENGINEER.
--- NOTE | 2022-02-09 19:30 | NUR ---
FIBERGLASS LUGGAGE MOLDER NOTES RECEIVED ON BED,ON HIGH FOWLERS POSITION,BREATHING REGUALR,NOT IN ANY FORM OF DISTRESS,ABLE TO ANSWER SIMPLE QUESTION.S/P LAP PATRICIO ON ,LOU DRAIN ALREADY REMOVED BY DR LOWRY YESTERDAY,DRESSING INTACT AND DRY.S/P CODE STROKE 02/08,NOTED LEFT SIDED WEAKNESS,PRESENT IVF INFUSING WELL ON RIGHT AC SALINE LOCK VIA IV PUMP,SITE PATENT.WITH NEURO CONSULT FOR STROKE,AWAITING FOR DR ALSTON.CALL LIGHT IN REACH,NEEDS ANTICIPATED.
[2022-02-09 20:00] VITALS: BP 129/86
--- NOTE | 2022-02-09 20:30 | NUR ---
HAZARDOUS MATERIALS HANDLER NOTES IV SITE INFILTRATED,NEW SALINE LOCK PLACE ON LEFT FORE ARM #22,RE START IV FLUIDS
[2022-02-10] VITALS: BP 121/82
--- NOTE | 2022-02-10 02:00 | NUR ---
COORDINATING PRODUCER NOTES HAVING HEART RATE FROM 120-140,HOSPITALIST DRESSMAKER GARMENT FITTER ЕЛЕНА ROSE MADE AWARE,WITH NEW ORDER OF CARDIZEM 5MG/1ML I SLOW IV PUSH ONE TIME,NOTED AND CARRIED OUT.
[2022-02-10] MEDS ORDERED: DILTIAZEM HCL 25 MG IV IV ONE (02:30)
--- NOTE | 2022-02-10 02:33 | NUR ---
MOLDER PUNCH NOTES BP 128/79,HR-134, CARDIZEM 5MG/1ML GIVEN SLOW IV X1 ORDERED.WILL MONITOR HEART AND BLOOD PRESSURE.
--- NOTE | 2022-02-10 02:47 | NUR ---
RECEIVING CLERK NOTES OFFERED PAIN MEDICINE BUT REFUSED,DENIES PAIN.
[2022-02-10 04:00] VITALS: BP 128/73
[2022-02-10] MEDS: ACETAMINOPHEN 325 MG TABLET PO PRN ×2 (04:11→15:56)
--- NOTE | 2022-02-10 04:11 | NUR ---
TURF FARM WORKER NOTES ORAL TEMP OF 99.8,TYLENOL 650MG PO GIVEN WITH APPLE SAUCE.
[2022-02-10] MEDS: PIPERACILLIN /TAZOBACTAM 3.375 G in IV D5W 100 ML IV SCH ×3 (04:53→20:31)
--- NOTE | 2022-02-10 06:23 | NUR ---
MS RN NOTES FAIRLY RESTED AT NIGHT,LATEST ORAL TEMP 98.1,IV ABX INFUSING EXTENDED RELEASE.N DISTRESS.ENDORSED FOR YENNIFER.
--- NOTE | 2022-02-10 07:25 | NUR ---
PHYSICAL EDUCATION DEPARTMENT CHAIR OPENING NOTES RECEIVED PT IN BED ASLEEP, EASILY AWAKEN UPON CALL OR TOUCH. PT ON RA, TOLERATE WELL. BREATHING EVEN AND UNLABORED. NOT IN ANY SIGN OF RESPIRATORY DISTRESS. ON TELE MONITOR, SHOWS AFIB WITH HR AT 130. NO COMPLAINS OF CARDIAC DISCOMFORT OR DISTRESS AT THIS TIME. IV ACCESS IN LFA G #22, INTACT AND PATENT. SAFETY MEASURES IN PLACE: BED IN LOWEST AND LOCKED POSITION, SIDE RAILS UPX2, CALL LIGHT WITHIN EASY REACH. WILL CONTINUE TO MONITOR PT.
[2022-02-10 08:00] VITALS: BP 119/70
[2022-02-10 09:07] LABS: BASOPHILS # (AUTO) 0.1 K/uL (0.0-0.2); BASOPHILS % (AUTO) 0.7 % (0.0-2.0); HEMATOCRIT 42 % (39-51); HEMOGLOBIN 13.9 g/dL (13.5-17.5); LYMPHOCYTES # (AUTO) 1.9 K/uL (0.8-4.8); LYMPHOCYTES % (AUTO) 10.9 % (20.0-44.0); MEAN CORPUSCULAR HGB CONC 33 g/dl (31.0-36.0); MEAN CORPUSCULAR VOLUME 89 fL (80-96); MONOCYTES # (AUTO) 1.4 K/uL (0.1-1.30); MONOCYTES % (AUTO) 7.9 % (2.0-12.0); NEUTROPHILS # (AUTO) 13.8 K/uL (1.8-8.9); NEUTROPHILS % (AUTO) 79.5 % (43.0-81.0); PLATELET COUNT (AUTO) 311 K/uL (150-450); RED BLOOD CELL COUNT(AUTO) 4.74 MIL/uL (4.5-6.0); WHITE BLOOD COUNT (AUTO) 17.4 K/uL (4.3-11.0)
[2022-02-10 09:19] LABS: ALBUMIN 2.1 g/dL (3.4-5.0); BILIRUBIN,TOTAL 0.8 mg/dL (0.2-1.0); CALCIUM, SERUM 7.6 mg/dL (8.5-10.1); CREATININE 1.3 mg/dL (0.6-1.3); MAGNESIUM 2.1 mg/dL (1.8-2.4); POTASSIUM 3.7 mmol/L (3.5-5.1); TOTAL PROTEIN, SERUM 6.8 g/dL (6.4-8.2)
--- NOTE | 2022-02-10 09:50 | NUR ---
RN NOTES RECEIVED CALL FROM LAB THAT PT HAD CRITICAL BLOOD GLUCOSE 573. RN SURGICAL YAO ON UNIT AND MADE AWARE WITH ORDER TO STAT REDRAW BLOOD FOR CBC AND CMP. CALLED LAB TO COME AND DO IT.
[2022-02-10] MEDS: APIXABAN 5 MG TABLET PO SCH ×2 (09:58→17:23)
[2022-02-10] MEDS: PANTOPRAZOLE 40 MG TABLET.DR PO SCH (09:59)
[2022-02-10] MEDS: LEVETIRACETAM (250 MG) 250 MG TABLET PO SCH ×2 (09:59→17:21)
[2022-02-10] MEDS: METOPROLOL TARTRATE 50 MG TABLET PO SCH ×2 (09:59→17:22)
[2022-02-10 11:07] LABS: BASOPHILS # (AUTO) 0.1 K/uL (0.0-0.2); BASOPHILS % (AUTO) 0.5 % (0.0-2.0); EOSINOPHILS % (AUTO) 1.3 % (0.0-6.0); HEMATOCRIT 44 % (39-51); HEMOGLOBIN 14.4 g/dL (13.5-17.5); LYMPHOCYTES # (AUTO) 1.5 K/uL (0.8-4.8); LYMPHOCYTES % (AUTO) 8.7 % (20.0-44.0); MEAN CORPUSCULAR HGB CONC 33 g/dl (31.0-36.0); MEAN CORPUSCULAR VOLUME 90 fL (80-96); MONOCYTES # (AUTO) 1.4 K/uL (0.1-1.30); MONOCYTES % (AUTO) 7.8 % (2.0-12.0); NEUTROPHILS # (AUTO) 14.5 K/uL (1.8-8.9); NEUTROPHILS % (AUTO) 81.7 % (43.0-81.0); PLATELET COUNT (AUTO) 342 K/uL (150-450); RED BLOOD CELL COUNT(AUTO) 4.91 MIL/uL (4.5-6.0); WHITE BLOOD COUNT (AUTO) 17.7 K/uL (4.3-11.0)
[2022-02-10 11:36] LABS: CALCIUM, SERUM 8.7 mg/dL (8.5-10.1); POTASSIUM 4.2 mmol/L (3.5-5.1)
[2022-02-10 11:50] LABS: ALBUMIN 2.4 g/dL (3.4-5.0); BILIRUBIN,TOTAL 0.9 mg/dL (0.2-1.0); TOTAL PROTEIN, SERUM 7.3 g/dL (6.4-8.2)
--- NOTE | 2022-02-10 13:39 | NUR ---
Bedside Swallow Evaluation completed: Recommending: [facility] soft ground/nectar liquids water protocol (may have thin liquids in between meals) meds: crushed with pureed 1:1 feeder strict aspiration protocol.
[2022-02-10] MEDS: IV D5/0.45 NACL 1,000 ML IV PRN (14:26)
--- NOTE | 2022-02-10 15:57 | NUR ---
RN NOTES PT NOTED WITH SLIGHT ELEVATED TEMP 99.8 F. BEN AT BEDSIDE AND REQUESTED FOR TYLENOL TO REDUCE THE TEMP. TYLENOL 650MG GIVEN ORDERED PRN. WILL MONITOR AND REASSESS PT.
[2022-02-10 16:00] VITALS: BP 117/65
--- NOTE | 2022-02-10 18:50 | NUR ---
MS RN CLOSING NOTES PT IN BED AWAKE, AOX3. ABLE TO MAKE NEEDS KNOWN. PT ON RA, TOLERATE WELL. BREATHING EVEN AND UNLABORED. NOT IN ANY SIGN OF RESPIRATORY DISTRESS. IV ACCESS IN LFA G #22, INTACT, PATENT, FLUSHING WELL. ALL NEEDS AND CARE PROVIDED TO PT. SAFETY MEASURES IN PLACE: BED IN LOWEST AND LOCKED POSITION, SIDE RAILS UPX2, CALL LIGHT WITHIN EASY REACH. WILL ENDORSE TO METHODOLOGIST NURSE.
[2022-02-10 20:00] VITALS: BP 109/71
--- NOTE | 2022-02-10 20:00 | NUR ---
RN NOTES RECEIVED PATIENT IN BED, ALERT/ORIENTED X3, STABLE ON ROOM AIR, NO COMPLAIN OF PAIN, ABDOMINAL LAP SITES X4, [place] INTACT, DRESSING DRY AND INTACT, EPISODES OF INCONTINENCE, RIGHT HAND IV SITE INTACT, INFUSING D5 1/2NS AT 100 ML/HR, KEPT SAFE, CALL LIGHT WITHIN REACH
[2022-02-11] MEDS: PIPERACILLIN /TAZOBACTAM 3.375 G in IV D5W 100 ML IV SCH (04:53)
--- NOTE | 2022-02-11 06:36 | NUR ---
ALERT/ORIENTED X3, ROOM AIR, NO COMPLAIN OF PAIN, BEDREST, ABDOMINAL INCISION SITES, S/P LAP PATRICIO AND REMOVAL OF LOU DRAIN, [place] INTACT, DRESSING DRY. D5 1/2 NS AT 100 ML/HR, MONITOR FOR S/S OF INFECTION, LOW GRADE FEVER, ANOTHER BLOOD CULTURE PENDING, DR. HAMMOND FOLLOWING, IF WBC DOES NOT GO DOWN CONSIDER REPEAT CT ABDOMEN, POSSIBLE FLUID COLLECTION DUE TO PERFORATIO
[2022-02-11 07:12] LABS: BASOPHILS # (AUTO) 0.1 K/uL (0.0-0.2); BASOPHILS % (AUTO) 0.5 % (0.0-2.0); EOSINOPHILS % (AUTO) 5.1 % (0.0-6.0); HEMATOCRIT 42 % (39-51); LYMPHOCYTES # (AUTO) 1.4 K/uL (0.8-4.8); LYMPHOCYTES % (AUTO) 13.8 % (20.0-44.0); MEAN CORPUSCULAR HGB CONC 33 g/dl (31.0-36.0); MEAN CORPUSCULAR VOLUME 89 fL (80-96); MONOCYTES # (AUTO) 0.9 K/uL (0.1-1.30); MONOCYTES % (AUTO) 8.6 % (2.0-12.0); NEUTROPHILS # (AUTO) 7.4 K/uL (1.8-8.9); PLATELET COUNT (AUTO) 304 K/uL (150-450); RED BLOOD CELL COUNT(AUTO) 4.74 MIL/uL (4.5-6.0); WHITE BLOOD COUNT (AUTO) 10.3 K/uL (4.3-11.0)
[2022-02-11 07:26] LABS: ALBUMIN 2.2 g/dL (3.4-5.0); BILIRUBIN,TOTAL 0.8 mg/dL (0.2-1.0); CALCIUM, SERUM 8.6 mg/dL (8.5-10.1); CREATININE 0.9 mg/dL (0.6-1.3); MAGNESIUM 2.2 mg/dL (1.8-2.4); TOTAL PROTEIN, SERUM 6.9 g/dL (6.4-8.2)
--- NOTE | 2022-02-11 07:30 | NUR ---
MS RN OPENING NOTES RECEIVED PATIENT RESTING ON BED AND A/O X3. ON ROOM AIR TOLERATING WELL. NO SOB NOTED. NOT IN DISTRESS. WITH NO COMPLAINTS OF PAIN AT THIS TIME. WITH IV ACCESS AT RIGHT HAND G20 WITH IVF D5 1/2NS AT 100ML/HR INFUSING WELL. SAFETY MEASURES IN PLACED. CALL LIGHT WITHIN REACH. BED ON LOWEST LOCKED POSITION, SIDE RAILS UP X2. WILL CONTINUE TO MONITOR.
[2022-02-11 09:08] VITALS: BP 116/72
[2022-02-11] MEDS: PANTOPRAZOLE 40 MG TABLET.DR PO SCH (09:08)
[2022-02-11] MEDS: METOPROLOL TARTRATE 50 MG TABLET PO SCH (09:08)
[2022-02-11] MEDS: LEVETIRACETAM (250 MG) 250 MG TABLET PO SCH (09:09)
[2022-02-11] MEDS: APIXABAN 5 MG TABLET PO SCH (09:10)
[2022-02-11] MEDS ORDERED: AMOX-430 PO (11:38)
--- NOTE | 2022-02-11 13:00 | NUR ---
HYDRATE CONTROL TENDER NOTES PATIENT WAS SEEN BY DR. YAO AND ORDERED PATIENT FOR DISCHARGE TO HOME WITH HOME HEALTH. DISCHARGE INSTRUCTION AND EDUCATION PROVIDED TO PATIENT AND EXPLAINED MEDICATIONS AND PRESCRIPTIONS TO PATIENT'S . VERBALIZED UNDERSTANDING. DISCHARGE FORM AND BELONGINGS LIST FORM SIGNED BY PATIENT. ALL BELONGINGS ACCOUNTED FOR. IV LINE AND NAME WRIST BAND REMOVED. ACCOMPANIED PATIENT TO THE LOBBY WITH VIA WHEELCHAIR IN STABLE CONDITION AND LEFT VIA PRIVATE CAR. MD AND CHARGE NURSE ARE AWARE OF THE DISCHARGE.
== END 2022-02-11 13:04 | disposition home health service (06) | DRG 409 ==
LOC: ER 14:07 → TRANSITION 16:50 → MED 18:08 → TELE 02-09 21:30 → MED 02-10 11:47
PROVIDERS: ADMIT Student in an Organized Health Care Education/Training Program; ATTEND Nurse Practitioner Family
PROC: 0FT44ZZ Resection of Gallbladder, Percutaneous Endoscopic Approach (ICD-10-PCS; principal; 2022-02-05)
PROC: 0F9440Z Drainage of Gallbladder with Drainage Device, Percutaneous Endoscopic Approach (ICD-10-PCS; 2022-02-05)
DX: K80.12 Calculus of gallbladder with acute and chronic cholecystitis without obstruction (principal); K82.A2 Perforation of gallbladder in cholecystitis; E44.1 Mild protein-calorie malnutrition; D68.59 Other primary thrombophilia; J98.11 Atelectasis; G45.9 Transient cerebral ischemic attack, unspecified; I48.91 Unspecified atrial fibrillation; F17.210 Nicotine dependence, cigarettes, uncomplicated; E11.65 Type 2 diabetes mellitus with hyperglycemia; E11.22 Type 2 diabetes mellitus with diabetic chronic kidney disease; E78.5 Hyperlipidemia, unspecified; E88.09 Other disorders of plasma-protein metabolism, not elsewhere classified; I13.10 Hypertensive heart and chronic kidney disease without heart failure, with stage 1 through stage 4 chronic kidney disease, or unspecified chronic kidney disease; I67.2 Cerebral atherosclerosis; K44.9 Diaphragmatic hernia without obstruction or gangrene; N18.9 Chronic kidney disease, unspecified; N40.0 Benign prostatic hyperplasia without lower urinary tract symptoms; Z79.01 Long term (current) use of anticoagulants; Z86.73 Personal history of transient ischemic attack (TIA), and cerebral infarction without residual deficits; I95.9 Hypotension, unspecified; R74.01 Elevation of levels of liver transaminase levels
CPT/HCPCS: 36415; 70450-TC; 70496-TC; 70498-TC; 71045-TC; 80048-TC; 80053-TC; 80061-TC; 80076-TC; 82962-TC; 83605-TC; 83690-TC; 83735-TC; 84100-TC; 84443-TC; 85025-TC; 85730-TC; 86803; 87040-TC; 87070-TC; 87075-TC; 87081-TC; 87806; 92521; 92526; 92611-TC; 93307-TC; 97110-TC; 97116-TC; 97530-TC; C9113; C9803; G0378; J0690; J1100; J1170; J2250; J2270; J2405; J2543; J2704; J2765; J3010; J3490; J7030; J7050; J7060; Q9967